=== PATIENT | female | born 1965 | race Two or more races ===

== ENCOUNTER 2022-01-22 18:23 | Emergency (ER) | payer OTHER ==
[~2022-01-22] VITALS: Ht 157.5 cm; Wt 81.8 kg
[2022-01-22 19:23] LABS: BASOPHILS % (AUTO) 0.6 % (0.0-2.0); EOSINOPHILS % (AUTO) 1.4 % (1.0-6.0); HEMATOCRIT 41.2 % (36-46); LYMPHOCYTES # (AUTO) 2.3 K/uL (1.0-4.8); LYMPHOCYTES % (AUTO) 32.7 % (22.0-44.0); MEAN CORPUSCULAR HEMOGLOBIN 29.5 pg (26.0-34.0); MEAN CORPUSCULAR HGB CONC 34.1 G/dL (31.0-37.0); MEAN CORPUSCULAR VOLUME 87 fL (80-100); MONOCYTES # (AUTO) 0.7 K/uL (0.1-1.0); MONOCYTES % (AUTO) 9.1 % (2.0-9.0); NEUTROPHILS % (AUTO) 56.2 % (40.0-70.0); PLATELET COUNT (AUTO) 169 K/uL (150-450); RED BLOOD CELL COUNT(AUTO) 4.75 MIL/uL (4.00-5.20)
[2022-01-22 19:33] LABS: COVID AG,FIA SOURCE NASOPHARYNGEAL
[2022-01-22] MEDS ORDERED: LORazepam 1 MG TABLET PO ONE (19:45)
[2022-01-22 19:56] LABS: ALANINE AMINOTRANSFERASE 49 U/L (12-78); ALBUMIN 3.6 g/dL (3.4-5.0); ALKALINE PHOSPHATASE 74 U/L (46-116); ANION GAP 11 mmol/L (8-16); ASPARTATE AMINOTRANSFERASE 47 U/L (15-37); BILIRUBIN,TOTAL 1.1 mg/dL (0.1-1.0); CALCIUM, TOTAL 9.4 mg/dL (8.8-10.5); CARBON DIOXIDE 29 mmol/L (22-29); CHLORIDE 103 mmol/L (98-107); CREATININE 0.64 mg/dL (0.60-1.30); GLOMERULAR FILTR. RATE CALC > 60 mL/min (>60); GLUCOSE,RANDOM 176 mg/dL (70-110); HCG,QUANTITATIVE 3 mIU/mL (0-6); SODIUM SERUM 143 mmol/L (136-145); TOTAL PROTEIN, SERUM 6.9 g/dL (6.4-8.2); UREA NITROGEN, BLOOD 11 mg/dL (7-18)
[2022-01-22] MEDS ORDERED: POTASSIUM CHLORIDE 20 MEQ ER TABLET PO ONE (20:15)
[2022-01-22 21:11] VITALS: BP 135/72
== END 2022-01-22 21:10 | disposition home or self-care (01) ==
LOC: EMS 18:23
DX: F20.9 Schizophrenia, unspecified (principal); E11.9 Type 2 diabetes mellitus without complications; I10 Essential (primary) hypertension; F15.90 Other stimulant use, unspecified, uncomplicated; Z87.19 Personal history of other diseases of the digestive system; Z98.890 Other specified postprocedural states; Z20.822 Contact with and (suspected) exposure to COVID-19
CPT/HCPCS: 36415; 80053; 82962; 84702; 85025; 87426; 99284; G0480

== ENCOUNTER 2022-03-12 03:05 | Inpatient (IN) | payer MEDICAID, OTHER ==
[~2022-03-12] VITALS: Ht 157.5 cm; Wt 79.4 kg
[2022-03-12 03:56] LABS: BASOPHILS % (AUTO) 0.5 % (0.0-2.0); EOSINOPHILS % (AUTO) 2.2 % (1.0-6.0); HEMATOCRIT 39.6 % (36-46); HEMOGLOBIN 13.5 g/dL (12.0-16.0); LYMPHOCYTES # (AUTO) 2.4 K/uL (1.0-4.8); LYMPHOCYTES % (AUTO) 27.2 % (22.0-44.0); MEAN CORPUSCULAR HEMOGLOBIN 29.1 pg (26.0-34.0); MEAN CORPUSCULAR HGB CONC 34.1 G/dL (31.0-37.0); MEAN CORPUSCULAR VOLUME 85 fL (80-100); MONOCYTES # (AUTO) 0.8 K/uL (0.1-1.0); NEUTROPHILS # (AUTO) 5.5 K/uL (1.8-7.7); NEUTROPHILS % (AUTO) 61.1 % (40.0-70.0); PLATELET COUNT (AUTO) 180 K/uL (150-450); RED BLOOD CELL COUNT(AUTO) 4.64 MIL/uL (4.00-5.20); RED CELL DISTRIBUTION WIDTH 14.5 % (11.5-14.5)
[2022-03-12 03:59] LABS: COVID AG,FIA SOURCE NASOPHARYNGEAL
[2022-03-12 04:04] LABS: ANION GAP 5 mmol/L (8-16); CALCIUM, TOTAL 9.1 mg/dL (8.8-10.5); CARBON DIOXIDE 30 mmol/L (22-29); CHLORIDE 102 mmol/L (98-107); CREATININE 0.59 mg/dL (0.60-1.30); GLOMERULAR FILTR. RATE CALC > 60 mL/min (>60); GLUCOSE,RANDOM 110 mg/dL (70-110); POTASSIUM 3.6 mmol/L (3.5-5.1); SODIUM SERUM 137 mmol/L (136-145); UREA NITROGEN, BLOOD 9 mg/dL (7-18)
[2022-03-12 04:10] LABS: ALANINE AMINOTRANSFERASE 38 U/L (12-78); ALBUMIN 3.5 g/dL (3.4-5.0); ALKALINE PHOSPHATASE 99 U/L (46-116); ASPARTATE AMINOTRANSFERASE 34 U/L (15-37); BILIRUBIN,TOTAL 0.6 mg/dL (0.1-1.0); TOTAL PROTEIN, SERUM 6.8 g/dL (6.4-8.2)
[2022-03-12 14:47] VITALS: BP 140/86
[2022-03-12 16:07] VITALS: BP 124/82
[2022-03-12] MEDS: LORazepam 2 MG TABLET PO PRN (18:31)
[2022-03-12] MEDS: HALOPERIDOL 5 MG TABLET PO PRN (18:31)
[2022-03-13 05:59] VITALS: BP 122/71
[2022-03-13 08:13] VITALS: BP 121/81
[2022-03-13] MEDS ORDERED: CloNIDine HCL 0.1 MG TABLET PO PRN (09:45)
[2022-03-13] MEDS ORDERED: ALBUTEROL SULFATE HFA 90 MCG/PUFF 8 GM INHALER IH PRN (09:45)
[2022-03-13] MEDS ORDERED: GuaiFENesin/D-METHORPHAN [SUGAR-FREE] 200-20MG/10 ML SYRUP UDCUP PO PRN (09:45)
[2022-03-13] MEDS ORDERED: DOCUSATE SODIUM 100 MG CAPSULE PO PRN (09:45)
[2022-03-13] MEDS ORDERED: MAG HYDROX/AL HYDROX/SIMETH ES 30 ML SUSPENSION UDCUP PO PRN (09:45)
[2022-03-13] MEDS ORDERED: LOPERAMIDE HCL 2 MG CAPSULE PO PRN (09:45)
[2022-03-13] MEDS ORDERED: NICOTINE 14 MG/24 HOUR PATCH TD PRN (09:45)
[2022-03-13] MEDS ORDERED: MAGNESIUM HYDROXIDE SUSPENSION 30 ML UDCUP PO PRN (09:45)
[2022-03-13] MEDS ORDERED: ONDANSETRON HCL 4 MG TABLET PO PRN (09:45)
[2022-03-13] MEDS ORDERED: IBUPROFEN 400 MG TABLET PO PRN (09:45)
[2022-03-13] MEDS ORDERED: PETROLATUM,WHITE 28 GM JELLY TP PRN (09:45)
[2022-03-13] MEDS ORDERED: ACETAMINOPHEN 325 MG TABLET PO PRN (09:45)
[2022-03-13] MEDS ORDERED: PNEUMOCOCCAL VACCINE POLYVALENT 0.5 ML VIAL [PPSV23] IM. ONE (10:45)
[2022-03-13 16:08] VITALS: BP 152/64
[2022-03-13] MEDS: LORazepam 2 MG TABLET PO PRN (16:45)
[2022-03-13] MEDS: HALOPERIDOL 5 MG TABLET PO PRN (16:45)
[2022-03-13] MEDS: OLANZapine 10 MG TABLET PO SCH (20:20)
[2022-03-13] MEDS: ZOLPIDEM TARTRATE 10 MG TABLET PO PRN (20:20)
[2022-03-14 00:50] VITALS: BP 141/69
[2022-03-14 07:05] LABS: APPEARANCE,URINE CLEAR (CLEAR); BILIRUBIN,URINE NEGATIVE (NEGATIVE); GLUCOSE, URINE (UA) NEGATIVE (NEGATIVE); KETONES,URINE NEGATIVE (NEGATIVE); LEUKOCYTE ESTERASE ,URINE LARGE (NEGATIVE); NITRATE,URINE NEGATIVE (NEGATIVE); OCCULT BLOOD,URINE NEGATIVE (NEGATIVE); PROTEIN,URINE NEGATIVE (NEGATIVE); SPECIFIC GRAVITIY, URINE 1.009 (1.003-1.030); UROBILINOGEN,URINE <=1.0 mg/dL (<=1.0)
[2022-03-14 07:19] LABS: AMPHET/METH SCREEN,URINE NEGATIVE (NEGATIVE); BARBITURATE SCREEN, URINE NEGATIVE (NEGATIVE); BENZODIAZEPINES SCREEN,URINE NEGATIVE (NEGATIVE); CANNABINOID SCREEN,URINE NEGATIVE (NEGATIVE); COCAINE SCREEN,URINE NEGATIVE (NEGATIVE); METHADONE SCREEN, URINE NEGATIVE (NEGATIVE); OPIATE SCREEN,URINE NEGATIVE (NEGATIVE); PHENCYCLIDINE SCREEN,URINE NEGATIVE (NEGATIVE)
[2022-03-14 07:41] LABS: RBC,URINE None Seen /HPF (0-2)
[2022-03-14 07:42] LABS: BACTERIA,URINE Few /HPF (None Seen); SQUAMOUS EPITHELIAL CELL,UR Few /LPF (None Seen)
[2022-03-14 08:34] VITALS: BP 123/59
[2022-03-14 16:09] VITALS: BP 146/82
[2022-03-14] MEDS: OLANZapine 10 MG TABLET PO SCH (20:15)
[2022-03-15 00:20] VITALS: BP 134/80
[2022-03-15] MEDS: CEPHALEXIN MONOHYDRATE 500 MG CAPSULE PO SCH ×3 (08:10→17:35)
[2022-03-15] MEDS: LORazepam 2 MG TABLET PO PRN (08:10)
[2022-03-15] MEDS: HALOPERIDOL 5 MG TABLET PO PRN (08:10)
[2022-03-15 08:35] VITALS: BP 131/82
[2022-03-15] MEDS: OLANZapine 10 MG TABLET PO SCH (20:14)
[2022-03-16 00:34] VITALS: BP 130/78
[2022-03-16] MEDS: CEPHALEXIN MONOHYDRATE 500 MG CAPSULE PO SCH ×3 (08:18→16:51)
[2022-03-16 08:24] VITALS: BP 125/73
[2022-03-16] MEDS: LORazepam 2 MG TABLET PO PRN (12:25)
[2022-03-16 16:12] VITALS: BP 123/80
[2022-03-16] MEDS: OLANZapine 10 MG TABLET PO SCH (20:07)
[2022-03-17 06:47] VITALS: BP 122/78
[2022-03-17 08:29] VITALS: BP 127/75
[2022-03-17] MEDS: CEPHALEXIN MONOHYDRATE 500 MG CAPSULE PO SCH ×3 (08:31→16:13)
[2022-03-17] MEDS: HALOPERIDOL 5 MG TABLET PO PRN ×2 (10:11→18:39)
[2022-03-17] MEDS: LORazepam 2 MG TABLET PO PRN (10:11)
[2022-03-17 15:11] LABS: GLUCOMETER DEV NAME(LOC) POC.BV
[2022-03-17 16:19] VITALS: BP 109/78
[2022-03-17] MEDS: OLANZapine 10 MG TABLET PO SCH (20:12)
[2022-03-18 00:06] VITALS: BP 117/84
[2022-03-18] MEDS: ZOLPIDEM TARTRATE 10 MG TABLET PO PRN (00:36)
[2022-03-18 08:32] VITALS: BP 137/93
[2022-03-18] MEDS: CEPHALEXIN MONOHYDRATE 500 MG CAPSULE PO SCH ×2 (08:33→12:29)
[2022-03-18] MEDS ORDERED: CEPH-558 PO (12:00)
[2022-03-18] MEDS ORDERED: OLAN10TA74 PO (12:01)
[2022-03-18] MEDS ORDERED: OLAN10 PO (12:34)
== END 2022-03-18 14:10 | disposition home or self-care (01) | DRG 750 ==
LOC: EMS 03:06 → B2S 13:04
PROVIDERS: ADMIT Psychiatry & Neurology Child & Adolescent Psychiatry; ATTEND Psychiatry & Neurology Child & Adolescent Psychiatry
DX: F25.1 Schizoaffective disorder, depressive type (principal); E11.9 Type 2 diabetes mellitus without complications; R45.851 Suicidal ideations; Z20.822 Contact with and (suspected) exposure to COVID-19; F10.10 Alcohol abuse, uncomplicated; I10 Essential (primary) hypertension; Z59.00 Homelessness unspecified; B19.20 Unspecified viral hepatitis C without hepatic coma; Z28.21 Immunization not carried out because of patient refusal; Z88.8 Allergy status to other drugs, medicaments and biological substances; Z71.41 Alcohol abuse counseling and surveillance of alcoholic
CPT/HCPCS: 80053; 81001; 85025; 87086; 99285; G0480

== ENCOUNTER 2025-06-12 20:35 | Emergency (ER) | payer MEDICAID ==
[~2025-06-12] VITALS: Ht 157.5 cm; Wt 86.4 kg
[~2025-06-12 20:35] MED LIST: CEPH-558 PO; OLAN10 PO; OLAN10TA74 PO
[2025-06-12 20:46] VITALS: TEMP 97.9
[2025-06-12 21:26] LABS: COVID AG,FIA SOURCE NASAL SWAB
[2025-06-12 21:27] LABS: PLATELET COUNT (AUTO) 209 K/uL (150-450); RED BLOOD CELL COUNT(AUTO) 5.24 MIL/uL (4.00-5.20); RED CELL DISTRIBUTION WIDTH 15.8 % (11.5-14.5); WHITE BLOOD COUNT (AUTO) 9.5 K/uL (4.5-11.0)
[2025-06-12 21:34] LABS: SARS-COV2 (COVID) ANTIGEN,FIA Negative (Negative)
[2025-06-12 21:36] LABS: CALCIUM, TOTAL 9.3 mg/dL (8.8-10.5); CREATININE 0.73 mg/dL (0.60-1.30); GLOMERULAR FILTR. RATE CALC > 60 mL/min (>60); GLUCOSE,RANDOM 98 mg/dL (70-110); SODIUM SERUM 139 mmol/L (136-145); UREA NITROGEN, BLOOD 3 mg/dL (7-18)
[2025-06-12 21:41] LABS: ALCOHOL, BLOOD (SERUM) < 3 mg/dL (0-10)
[2025-06-12 21:42] LABS: ASPARTATE AMINOTRANSFERASE 34 U/L (15-37); TOTAL PROTEIN, SERUM 7.2 g/dL (6.4-8.2)
[2025-06-12 23:28] LABS: TROPONIN I-HIGH SENSITIVITY 15 ng/L (<51)
[2025-06-12 23:35] LABS: LACTIC ACID 1.8 mmol/L (0.4-2.0)
[2025-06-12] MEDS: VANCOMYCIN 1GM/WATER(PEG/NADA) 200 ML IV ONE (23:44)
[2025-06-12] MEDS ORDERED: ALBUTEROL SULFATE 2.5 MG/0.5 ML NEB SOLUTION NEB PRN (23:45)
[2025-06-12] MEDS ORDERED: BISACODYL 10 MG RECTAL RECTAL SUPPOSITORY PR PRN (23:45)
[2025-06-12] MEDS ORDERED: MORPHINE SULFATE 2 MG/ML SYRINGE IVP PRN (23:45)
[2025-06-12] MEDS ORDERED: IPRATROPIUM BROMIDE 0.5 MG/2.5 ML NEB SOLUTION NEB PRN (23:45)
[2025-06-12] MEDS ORDERED: ACETAMINOPHEN 325 MG TABLET PO PRN (23:45)
[2025-06-12] MEDS ORDERED: ZOLPIDEM TARTRATE 5 MG TABLET PO PRN (23:45)
[2025-06-12] MEDS ORDERED: MAGNESIUM HYDROXIDE SUSPENSION 30 ML UDCUP PO PRN (23:45)
[2025-06-12] MEDS ORDERED: ONDANSETRON HCL 4 MG/2 ML VIAL IVP PRN (23:45)
[2025-06-12] MEDS ORDERED: HYDROCODONE/ACETAMINOPHEN 5-325 MG TABLET PO PRN (23:45)
[2025-06-12] MEDS: HEPARIN SODIUM,PORCINE 5,000 UNITS/ML VIAL SQ SCH (23:58)
[2025-06-13 01:40] LABS: APPEARANCE,URINE HAZY (CLEAR); GLUCOSE, URINE (UA) NEGATIVE (NEGATIVE); LEUKOCYTE ESTERASE ,URINE LARGE (NEGATIVE); NITRATE,URINE NEGATIVE (NEGATIVE); OCCULT BLOOD,URINE TRACE (NEGATIVE); PH,URINE DRUG SCREEN 6.0 (5.0-8.0); SPECIFIC GRAVITIY, URINE 1.009 (1.003-1.030)
[2025-06-13 01:45] LABS: ALCOHOL, URINE DRUG SCREEN NEGATIVE (NEGATIVE); AMPHET/METH SCREEN,URINE POSITIVE (NEGATIVE); BARBITURATE SCREEN, URINE NEGATIVE (NEGATIVE); CANNABINOID SCREEN,URINE POSITIVE (NEGATIVE); COCAINE SCREEN,URINE POSITIVE (NEGATIVE); METHADONE SCREEN, URINE NEGATIVE (NEGATIVE)
[2025-06-13 03:45] LABS: SQUAMOUS EPITHELIAL CELL,UR Rare /LPF (None Seen)
[2025-06-13 04:46] VITALS: BP 142/87; PULSE 78; RESP 14; O2SAT 96
[2025-06-13] MEDS ORDERED: CEPH-558 PO (06:59)
[2025-06-13] MEDS ORDERED: DOXY-354 PO (06:59)
[2025-06-13] MEDS ORDERED: OLAN10TA74 PO (06:59)
[2025-06-13] MEDS ORDERED: VANCOMYCIN 1GM/WATER(PEG/NADA) 200 ML IV SCH (08:00)
[2025-06-13] MEDS ORDERED: PANTOPRAZOLE SODIUM 40 MG DR TABLET PO SCH (09:00)
[2025-06-19] MEDS ORDERED: METF-1211 PO (14:07)
[2025-06-19] MEDS ORDERED: CLEAR FIBER PO (14:07)
[2025-06-19] MEDS ORDERED: TRI115O TP (14:07)
[2025-06-19] MEDS ORDERED: CHOL500043 PO (14:07)
[2025-06-19] MEDS ORDERED: LORA10TA7 PO (14:07)
[2025-06-19] MEDS ORDERED: MELA3TAB89 PO (14:07)
[2025-06-19] MEDS ORDERED: ATOR40TA71 PO (14:07)
[2025-06-19] MEDS ORDERED: BUDE10.27 PO (14:07)
[2025-06-19] MEDS ORDERED: CLOT15CR23 TP (14:07)
[2025-06-19] MEDS ORDERED: AZEL137S8 NASAL (14:07)
[2025-06-19] MEDS ORDERED: TIRZ12.5 SQ (14:07)
[2025-06-19] MEDS ORDERED: OMEP20CA12 PO (14:07)
[2025-06-19] MEDS ORDERED: TIOT4MIS2 IH (14:07)
[2025-06-19] MEDS ORDERED: SERT-438 PO (14:07)
[2025-06-19] MEDS ORDERED: TRAZ-252 PO (14:07)
[2025-06-22] MEDS ORDERED: TRAZ-252 PO (11:50)
[2025-06-22] MEDS ORDERED: SERT-439 PO (11:50)
== END 2025-06-13 07:06 | disposition left against medical advice (07) ==
LOC: EMS 20:39 → EDH 23:45 → UNDOADMIN 23:45 → EMS 06-13 07:06
DX: F20.9 Schizophrenia, unspecified (principal); L03.116 Cellulitis of left lower limb; L03.115 Cellulitis of right lower limb; J18.9 Pneumonia, unspecified organism; F17.210 Nicotine dependence, cigarettes, uncomplicated; E11.9 Type 2 diabetes mellitus without complications; F31.9 Bipolar disorder, unspecified; I10 Essential (primary) hypertension; Z86.19 Personal history of other infectious and parasitic diseases; Z98.890 Other specified postprocedural states; Z79.899 Other long term (current) drug therapy; Z88.5 Allergy status to narcotic agent; Z20.822 Contact with and (suspected) exposure to COVID-19
CPT/HCPCS: 99285; 96365; 71045; 96366; 87426; 80048; 80076; 82962; 83605; 83880; 84484; 85025; 87040; 87086; 93005; 80307; 81001; 36415; G0480; J3490